=== PATIENT | male | born 1995 | race American Indian/Alaskan Native ===

== ENCOUNTER 2017-04-06 21:29 | Emergency (ER) | payer SELFPAY ==
[2017-04-06 21:42] VITALS: BP 118/43
--- NOTE | 2017-04-06 23:26 | XRay Report ---
FINAL REPORT EXAM: XR SHOULDER 2+V RT HISTORY: shoulder pain, injury, possible dislocation TECHNIQUE: Three views right shoulder PRIORS: None. FINDINGS: No fractures are identified. No dislocation seen. The acromioclavicular joint is intact. Adjacent bony and soft tissue structures are unremarkable. IMPRESSION: Negative shoulder series
[2017-04-07] MEDS ORDERED: NORCO 5/325 PO ONE (03:13)
--- NOTE | 2017-04-07 03:14 | Emergency Department Report ---
ED Upper Extremity Inj HPI - General Chief Complaint: Shoulder Injury Stated Complaint: SHOULDER DISLOCATED Time Seen by Provider: 04/07/17 02:50 Source: patient Mode of arrival: Ambulatory Limitations: No Limitations - History of Present Illness Initial Comments: 21-year-old male presents with complaint of pain in right shoulder status post fall while playing basketball this evening. Patient denies any loss of consciousness denies sustaining any lacerations. Is awake alert and oriented 3. States that he has pain when he tries to lift his right shoulder. Patient is visibly ranging his right shoulder but complains of pain as he tries to lift high or abduct/rotate it. Complaint: Injury to:: right, shoulder -: This evening Other Extremity Injury: Shoulder: Right Handedness: right Place: outdoors Severity scale (0 -10): 6 Improves With: cold therapy, immobilization Context: fall Associated Symptoms: denies other symptoms - Related Data Previous Rx's Medication Instructions Recorded Last Taken Type Naproxen [Naprosyn TAB] 500 mg PO BID PRN #25 tablet 04/07/17 Unknown Rx Allergies Allergy/AdvReac Type Severity Reaction Status Date / Time No Known Allergies Allergy Unverified 04/06/17 21:42 ED Review of Systems ROS: Stated complaint: SHOULDER DISLOCATED Other details as noted in HPI Constitutional: denies: chills, fever Eyes: denies: eye pain, eye discharge, vision change ENT: denies: ear pain, throat pain Respiratory: denies: cough, shortness of breath, wheezing Cardiovascular: denies: chest pain, palpitations Endocrine: no symptoms reported Gastrointestinal: denies: abdominal pain, nausea, diarrhea Genitourinary: denies: urgency, dysuria Musculoskeletal: denies: back pain, joint swelling, arthralgia Skin: denies: rash, lesions Neurological: denies: headache, weakness, paresthesias Psychiatric: denies: anxiety, depression Hematological/Lymphatic: denies: easy bleeding, easy bruising ED Past Medical Hx - Past Medical History Previous Medical History?: No - Surgical History Additional Surgical History: trach - Social History Smoking Status: Current Every Day Smoker Substance Use Type: None - Medications Home Medications: Home Medications Medication Instructions Recorded Confirmed Last Taken Type Naproxen [Naprosyn TAB] 500 mg PO BID PRN #25 tablet 04/07/17 Unknown Rx ED Physical Exam - General Limitations: No Limitations General appearance: alert, in no apparent distress - Head Head exam: Present: atraumatic, normocephalic - Eye Eye exam: Present: normal appearance, PERRL, EOMI - ENT ENT exam: Present: mucous membranes moist - Neck Neck exam: Present: normal inspection - Respiratory Respiratory exam: Present: normal lung sounds bilaterally. Absent: respiratory distress - Cardiovascular Cardiovascular Exam: Present: regular rate, normal rhythm. Absent: systolic murmur, diastolic murmur, rubs, gallop - GI/Abdominal GI/Abdominal exam: Present: soft, normal bowel sounds - Rectal Rectal exam: Present: deferred - Extremities Exam Extremities exam: Present: normal inspection - Expanded Upper Extremity Exam Right Shoulder Exam: Present: normal inspection, full ROM (shoulder abduction limited to 90, abduction shoulder internal and external rotation intact) Upper Arm exam: Present: normal inspection, full ROM Elbow exam: Present: normal inspection, full ROM Forearm Wrist exam: Present: normal inspection, full ROM (wrist flexion and extension intact) Hand Wrist exam: Present: normal inspection, full ROM Neuro motor exam: Present: wrist extension intact, thumb opposition intact, thumb IP flexion intact, thumb adduction intact, fingers 2-5 abduction intact, other Vascular: Present: normal capillary refill (distal radial ulnar and brachial pulses intact, capillary refill less than one second in all fingers right upper extremity) - Back Exam Back exam: Present: normal inspection, full ROM - Neurological Exam Neurological exam: Present: alert, oriented X3, CN II-XII intact, normal gait - Psychiatric Psychiatric exam: Present: normal affect, normal mood - Skin Skin exam: Present: warm, dry, intact, normal color. Absent: rash ED Course Vital Signs 04/06/17 21:38 Temperature 98.1 F Pulse Rate 53 L Respiratory 18 Rate Blood Pressure 118/43 ED Medical Decision Making - Medical Decision Making A/P: Right shoulder sprain, possible right rotator cuff injury 1-right upper extremity neurovascularly intact pain with shoulder abduction above 90 consistent with possible rotator cuff injury. not clinically dislocated 2-x-ray right shoulder unremarkable 3-Aleve when necessary 4- follow-up with primary care and orthopedics 5- shoulder sling for now. I advised patient only uses it when the shoulder is significantly bothering him and to not use it for prolonged periods of time to prevent frozen shoulder syndrome. I suggested the patient that he rest his shoulder for the next several days Critical care attestation.: If time is entered above; I have spent that time in minutes in the direct care of this critically ill patient, excluding procedure time. ED Disposition Clinical Impression: Right shoulder pain Qualifiers: Chronicity: acute Qualified Code(s): M25.511 - Pain in right shoulder Disposition: - TO HOME OR SELFCARE Is pt being admited?: No Does the pt Need Aspirin: No Condition: Stable Instructions: Rotator Cuff Injury (ED), Shoulder Sprain (ED) Prescriptions: Naproxen [Naprosyn TAB] 500 mg PO BID PRN #25 tablet PRN Reason: Pain Referrals: LIANNE DE ANDA MD [Staff Physician] - 3-5 Days [facility] [Provider Group] - 3-5 Days [facility] [Provider Group] - 3-5 Days Forms: Accompanied Note, Work/School Release Form(ED) Time of Disposition: 03:15
== END 2017-04-07 03:55 | disposition home or self-care (01) ==
LOC: ED 21:29
DX: M25.511 Pain in right shoulder (principal); F17.200 Nicotine dependence, unspecified, uncomplicated